=== PATIENT | female | born 1940 | race Asian ===

== ENCOUNTER 2023-04-16 07:41 | Inpatient (IN) | payer OTHER ==
[~2023-04-16] VITALS: Ht 147.3 cm; Wt 34.0 kg
[~2023-04-16 07:41] MED LIST: MECL-370 PO; PAM10 PO; PRED-285 PO; TEMA15CA11 PO; [UNRECOGNIZED DRUG - CODE] PO
[2023-04-16 07:47] VITALS: BP 103/72; PULSE 140; RESP 22; TEMP 97.6; O2SAT 94
[2023-04-16] MEDS: NACL 0.9% 1,000 ML IV ONE ×2 (08:06→10:10)
[2023-04-16 08:34] LABS: BASOPHILS % (AUTO) 0.3 % (0.0-2.0); EOSINOPHILS % (AUTO) 0.1 % (0.0-4.0); HEMATOCRIT 43.8 % (36-48); LYMPHOCYTES # (AUTO) 1.8 K/uL (2.5-16.5); LYMPHOCYTES % (AUTO) 18.9 % (20.5-51.1); MEAN CORPUSCULAR HEMOGLOBIN 36 pg (27-31); MEAN CORPUSCULAR HGB CONC 34 g/dL (33-37); MEAN CORPUSCULAR VOLUME 106.5 fL (80-94); MONOCYTES # (AUTO) 0.3 K/uL (0.8-1.0); MONOCYTES % (AUTO) 3.4 % (1.7-9.3); NEUTROPHILS # (AUTO) 7.2 K/uL (1.8-7.7); NEUTROPHILS % (AUTO) 77.3 % (42.2-75.2); PLATELET COUNT (AUTO) 122 K/uL (140-450); RED BLOOD CELL COUNT(AUTO) 4.11 MIL/uL (4.20-5.40); RED CELL DISTRIBUTION WIDTH 18.3 % (11.6-13.7); WHITE BLOOD COUNT (AUTO) 9.3 K/uL (4.8-10.8)
[2023-04-16] MEDS ORDERED: ADENOSINE 6 MG/2 ML VIAL IVP ONE ×3 (08:51→09:06)
[2023-04-16 08:54] LABS: INR 1.33 (0.8-1.2); PARTIAL THROMBOPLASTIN TIME 27.2 secs (22-35.6); PROTHROMBIN TIME 13.8 secs (10.8-13.4)
[2023-04-16] MEDS: ADENOSINE 6 MG/2 ML VIAL IVP ONE ×3 (09:00→10:00)
[2023-04-16 09:06] LABS: ANION GAP 18.6 (8-16); CALCIUM 9.8 mg/dL (8.5-10.1); CARBON DIOXIDE 17.9 mmol/L (21-32); CHLORIDE 108 mmol/L (98-107); CREATININE 2.3 mg/dL (0.6-1.3); GLUCOSE 112 mg/dL (74-106); POTASSIUM 5.5 mmol/L (3.5-5.1); SODIUM SERUM 139 mmol/L (136-145); UREA NITROGEN, BLOOD 52 mg/dL (7-18)
[2023-04-16] MEDS: MAG SULF 2000 MG/WATER PREMIX 50 ML IV ONE (09:10)
[2023-04-16 09:12] LABS: LACTIC ACID 5.7 mmol/L (0.4-2.0)
[2023-04-16 09:36] LABS: FLU A ANTIGEN negative (NEGATIVE); FLU B ANTIGEN negative (NEGATIVE)
[2023-04-16 09:36] LABS: ALANINE AMINOTRANSFERASE 9 U/L (12-78); ALBUMIN 2.3 g/dL (3.4-5.0); ALKALINE PHOSPHATASE 71 U/L (50-136); BILIRUBIN,DIRECT 0.4 mg/dL (0.0-0.3); CREATINE KINASE, TOTAL 28 U/L (26-192); MAGNESIUM 2.1 mg/dL (1.8-2.4); PHOSPHORUS 5.9 mg/dL (2.5-4.9); THYROID STIMULATING HORMONE 1.74 uIU/mL (0.34-3.74); TOTAL BILIRUBIN 1.2 mg/dL (0.0-1.0); TOTAL PROTEIN, SERUM 7.8 g/dL (6.4-8.2)
[2023-04-16 09:57] LABS: ASPARTATE AMINOTRANSFERASE 37 U/L (15-37)
[2023-04-16] MEDS: DILTIAZEM 25 MG/5 ML VIAL IVP ONE (10:38)
[2023-04-16] MEDS ORDERED: PIPERACILLIN/TAZOBACTAM 3.375 GM VIAL IV ONE (11:15)
[2023-04-16] MEDS: PIPERACILLIN/TAZOBACTAM 3.375 GM in DEXTROSE 5% 50 ML IV ONE (11:17)
[2023-04-16] MEDS: DILTIAZEM 125 MG in DEXTROSE 5% 100 ML IV ONE (11:20)
[2023-04-16 11:32] LABS: BILIRUBIN,URINE 2+ (NEGATIVE); BLOOD, URINE 3+ (NEGATIVE); LEUKOCYTE ESTERASE ,URINE 2+ (NEGATIVE); NITRITE, URINE POSITIVE (NEGATIVE); PROTEIN,URINE 1+ (NEGATIVE); UGLUCOSE TRACE (NEGATIVE)
[2023-04-16 11:46] LABS: APPEARANCE,URINE CLOUDY (CLEAR); COLOR,URINE AMBER (YELLOW)
[2023-04-16 11:50] LABS: RBC,URINE 20-50 /HPF (0-5); WBC,URINE 60-80 /HPF (0-5)
[2023-04-16] MEDS ORDERED: VANCOMYCIN 1,000 MG VIAL ONE (11:52)
[2023-04-16 11:53] LABS: SQUAMOUS EPITHELIAL CELL,UR 0-3 (FEW) /LPF (0-3 (FEW))
[2023-04-16 11:54] LABS: MUCUS,URINE 1+ /LPF (None Seen)
[2023-04-16 11:57] LABS: BACTERIA,URINE FEW /HPF (None Seen); ICTOTEST POSITIVE (NEGATIVE)
[2023-04-16] MEDS ORDERED: HYDROcodone/APAP 5/325 MG 1 TAB TAB PO PRN (12:25)
[2023-04-16] MEDS ORDERED: ZOLPIDEM 5 MG TAB PO PRN (12:25)
[2023-04-16] MEDS ORDERED: LORazepam 1 MG TAB PO PRN (12:25)
[2023-04-16] MEDS: VANCOMYCIN 1,000 MG in DEXTROSE 5% 250 ML IV ONE (12:30)
[2023-04-16] MEDS: NACL 0.9% 1,000 ML IV SCH (12:59)
[2023-04-16] MEDS: NACL 0.9% 500 ML IV SCH (15:12)
[2023-04-16 20:30] VITALS: BP 123/64; PULSE 91; RESP 16; TEMP 97.8; O2SAT 100
[2023-04-16 21:00] VITALS: PULSE 89; RESP 17; O2SAT 100
[2023-04-16 22:00] VITALS: BP 130/65; PULSE 94; RESP 16; O2SAT 100
[2023-04-16 23:00] VITALS: BP 123/64; PULSE 89; RESP 13; O2SAT 100
[2023-04-16 23:53] VITALS: BP 130/65; PULSE 91; RESP 16; TEMP 97.8; O2SAT 100
[2023-04-17] VITALS (15 sets, daily range): BP systolic 110–163; BP diastolic 48–82; PULSE 64–104; RESP 12–20; TEMP 97.2–98.5; O2SAT 98–100
[2023-04-17] MEDS ORDERED: PIPERACILLIN/TAZOBACTAM 3.375 GM in DEXTROSE 5% 50 ML IV SCH
[2023-04-17] MEDS: PIPERACILLIN/TAZOBACTAM 2.25 GM in DEXTROSE 5% 50 ML IV SCH (00:13)
[2023-04-17] MEDS: PIPERACILLIN/TAZOBACTAM 2.25 GM VIAL IV ONE (00:15)
[2023-04-17] MEDS ORDERED: PIPERACILLIN/TAZOBACTAM 2.25 GM VIAL IV ONE (05:37)
[2023-04-17 06:25] LABS: BASOPHILS % (AUTO) 0.1 % (0.0-2.0); HEMATOCRIT 32.3 % (36-48); LYMPHOCYTES # (AUTO) 1.3 K/uL (2.5-16.5); LYMPHOCYTES % (AUTO) 14.4 % (20.5-51.1); MEAN CORPUSCULAR HEMOGLOBIN 37 pg (27-31); MEAN CORPUSCULAR HGB CONC 34 g/dL (33-37); MEAN CORPUSCULAR VOLUME 107.3 fL (80-94); MONOCYTES # (AUTO) 0.1 K/uL (0.8-1.0); MONOCYTES % (AUTO) 1.1 % (1.7-9.3); NEUTROPHILS # (AUTO) 7.4 K/uL (1.8-7.7); NEUTROPHILS % (AUTO) 84.4 % (42.2-75.2); PLATELET COUNT (AUTO) 93 K/uL (140-450); RED BLOOD CELL COUNT(AUTO) 3.01 MIL/uL (4.20-5.40); RED CELL DISTRIBUTION WIDTH 18.6 % (11.6-13.7); WHITE BLOOD COUNT (AUTO) 8.8 K/uL (4.8-10.8)
[2023-04-17 06:48] LABS: ALANINE AMINOTRANSFERASE 6 U/L (12-78); ALBUMIN 1.8 g/dL (3.4-5.0); ALKALINE PHOSPHATASE 53 U/L (50-136); ANION GAP 14.6 (8-16); ASPARTATE AMINOTRANSFERASE 30 U/L (15-37); CALCIUM 8.7 mg/dL (8.5-10.1); CARBON DIOXIDE 17.4 mmol/L (21-32); CHLORIDE 114 mmol/L (98-107); GLUCOSE 73 mg/dL (74-106); SODIUM SERUM 142 mmol/L (136-145); TOTAL BILIRUBIN 0.9 mg/dL (0.0-1.0); TOTAL PROTEIN, SERUM 5.9 g/dL (6.4-8.2); UREA NITROGEN, BLOOD 35 mg/dL (7-18)
[2023-04-17] MEDS ORDERED: remdesivir COMMUNICATION ORDER 1 EA MISC MC PRN (09:00)
[2023-04-17] MEDS: DOCUSATE SODIUM 100 MG GELCAP PO SCH (09:00)
[2023-04-17] MEDS ORDERED: remdesivir CLINICAL MONITORING 1 EA MISC MC PRN (10:00)
[2023-04-17] MEDS: REMDESIVIR. 200 MG in NACL 0.9% 100 ML IV SCH (10:45)
[2023-04-17] MEDS ORDERED: remdesivir COMMUNICATION ORDER 1 EA MISC MC SCH (11:00)
[2023-04-17] MEDS ORDERED: HYDRAGUARD CREAM TP PRN (12:35)
[2023-04-17] MEDS ORDERED: SKINTEGRITY HYDROGEL TP PRN (12:35)
[2023-04-17] MEDS ORDERED: Z-GUARD PASTE TP PRN (12:35)
[2023-04-17] MEDS: HYDRAGUARD CREAM TP SCH (13:00)
[2023-04-17] MEDS: SKINTEGRITY HYDROGEL TP SCH (13:00)
[2023-04-17] MEDS: Z-GUARD PASTE TP SCH (13:00)
[2023-04-18] VITALS (8 sets, daily range): BP systolic 110–136; BP diastolic 56–97; PULSE 57–112; RESP 18–20; TEMP 96.7–98; O2SAT 98–100
[2023-04-18 06:46] LABS: BASOPHILS % (AUTO) 0.1 % (0.0-2.0); EOSINOPHILS % (AUTO) 0.4 % (0.0-4.0); HEMATOCRIT 34.4 % (36-48); HEMOGLOBIN 11.8 g/dL (12.0-16.0); LYMPHOCYTES # (AUTO) 1.1 K/uL (2.5-16.5); LYMPHOCYTES % (AUTO) 18.7 % (20.5-51.1); MEAN CORPUSCULAR HEMOGLOBIN 37 pg (27-31); MEAN CORPUSCULAR HGB CONC 34 g/dL (33-37); MEAN CORPUSCULAR VOLUME 106.9 fL (80-94); MONOCYTES # (AUTO) 0.1 K/uL (0.8-1.0); NEUTROPHILS # (AUTO) 4.5 K/uL (1.8-7.7); NEUTROPHILS % (AUTO) 79.8 % (42.2-75.2); PLATELET COUNT (AUTO) 61 K/uL (140-450); RED BLOOD CELL COUNT(AUTO) 3.22 MIL/uL (4.20-5.40); RED CELL DISTRIBUTION WIDTH 18.5 % (11.6-13.7); WHITE BLOOD COUNT (AUTO) 5.7 K/uL (4.8-10.8)
[2023-04-18 06:56] LABS: ALBUMIN 1.9 g/dL (3.4-5.0); BILIRUBIN,DIRECT 0.4 mg/dL (0.0-0.3); TOTAL PROTEIN, SERUM 6.2 g/dL (6.4-8.2)
[2023-04-18 07:13] LABS: ALANINE AMINOTRANSFERASE 14 U/L (12-78); ALKALINE PHOSPHATASE 60 U/L (50-136); ANION GAP 15.9 (8-16); ASPARTATE AMINOTRANSFERASE 45 U/L (15-37); CARBON DIOXIDE 17.9 mmol/L (21-32); CHLORIDE 115 mmol/L (98-107); CREATININE 0.9 mg/dL (0.6-1.3); GLUCOSE 82 mg/dL (74-106); POTASSIUM 3.8 mmol/L (3.5-5.1); SODIUM SERUM 145 mmol/L (136-145); TOTAL PROTEIN, SERUM 6.3 g/dL (6.4-8.2); UREA NITROGEN, BLOOD 29 mg/dL (7-18)
[2023-04-18] MEDS: REMDESIVIR. 100 MG in NACL 0.9% 100 ML IV SCH (11:36)
[2023-04-19] VITALS (9 sets, daily range): BP systolic 100–130; BP diastolic 60–83; PULSE 70–118; RESP 18–20; TEMP 97.6–98.3; O2SAT 94–99
[2023-04-19] MEDS: cefTRIAXone 1,000 MG VIAL ONE (06:00)
[2023-04-19 06:47] LABS: BASOPHILS % (AUTO) 0.2 % (0.0-2.0); EOSINOPHILS % (AUTO) 0.6 % (0.0-4.0); HEMOGLOBIN 11.5 g/dL (12.0-16.0); LYMPHOCYTES # (AUTO) 1.1 K/uL (2.5-16.5); LYMPHOCYTES % (AUTO) 44.5 % (20.5-51.1); MEAN CORPUSCULAR HEMOGLOBIN 37 pg (27-31); MEAN CORPUSCULAR HGB CONC 35 g/dL (33-37); MEAN CORPUSCULAR VOLUME 106.4 fL (80-94); MONOCYTES % (AUTO) 1.2 % (1.7-9.3); NEUTROPHILS # (AUTO) 1.4 K/uL (1.8-7.7); NEUTROPHILS % (AUTO) 53.5 % (42.2-75.2); PLATELET COUNT (AUTO) 28 K/uL (140-450); RED CELL DISTRIBUTION WIDTH 18.6 % (11.6-13.7); WHITE BLOOD COUNT (AUTO) 2.6 K/uL (4.8-10.8)
[2023-04-19 07:07] LABS: ALANINE AMINOTRANSFERASE 10 U/L (12-78); ALBUMIN 1.8 g/dL (3.4-5.0); ALKALINE PHOSPHATASE 59 U/L (50-136); ANION GAP 13.9 (8-16); ASPARTATE AMINOTRANSFERASE 33 U/L (15-37); CALCIUM 9.2 mg/dL (8.5-10.1); CARBON DIOXIDE 17.8 mmol/L (21-32); CHLORIDE 119 mmol/L (98-107); CREATININE 0.7 mg/dL (0.6-1.3); GLUCOSE 104 mg/dL (74-106); POTASSIUM 3.7 mmol/L (3.5-5.1); SODIUM SERUM 147 mmol/L (136-145); TOTAL BILIRUBIN 1.2 mg/dL (0.0-1.0); TOTAL PROTEIN, SERUM 5.9 g/dL (6.4-8.2); UREA NITROGEN, BLOOD 32 mg/dL (7-18)
[2023-04-19] MEDS: DEXTROSE 5% 1,000 ML IV SCH (09:50)
[2023-04-19] MEDS ORDERED: DEXTROSE 5% 1,000 ML IV SCH (12:05)
[2023-04-19] MEDS: MIRTAZAPINE 15 MG TAB PO SCH (22:40)
[2023-04-20] VITALS: BP 105/61; PULSE 100; RESP 18; TEMP 98; O2SAT 96
[2023-04-20 04:00] VITALS: BP 108/59; PULSE 100; PULSE 102; RESP 18; TEMP 98.1; O2SAT 97
[2023-04-20 07:12] LABS: BASOPHILS % (AUTO) 0.2 % (0.0-2.0); EOSINOPHILS # (AUTO) 0.1 K/uL (0-0.4); EOSINOPHILS % (AUTO) 1.8 % (0.0-4.0); HEMATOCRIT 30.6 % (36-48); HEMOGLOBIN 10.6 g/dL (12.0-16.0); LYMPHOCYTES # (AUTO) 1.5 K/uL (2.5-16.5); LYMPHOCYTES % (AUTO) 42.3 % (20.5-51.1); MEAN CORPUSCULAR HEMOGLOBIN 37 pg (27-31); MEAN CORPUSCULAR HGB CONC 35 g/dL (33-37); MEAN CORPUSCULAR VOLUME 106.1 fL (80-94); MONOCYTES % (AUTO) 0.5 % (1.7-9.3); NEUTROPHILS % (AUTO) 55.2 % (42.2-75.2); RED BLOOD CELL COUNT(AUTO) 2.89 MIL/uL (4.20-5.40); RED CELL DISTRIBUTION WIDTH 18.2 % (11.6-13.7); WHITE BLOOD COUNT (AUTO) 3.6 K/uL (4.8-10.8)
[2023-04-20 07:26] LABS: ALANINE AMINOTRANSFERASE 8 U/L (12-78); ALBUMIN 1.7 g/dL (3.4-5.0); ALKALINE PHOSPHATASE 57 U/L (50-136); ANION GAP 13.8 (8-16); ASPARTATE AMINOTRANSFERASE 31 U/L (15-37); CALCIUM 9.3 mg/dL (8.5-10.1); CARBON DIOXIDE 20.6 mmol/L (21-32); CHLORIDE 119 mmol/L (98-107); CREATININE 0.8 mg/dL (0.6-1.3); GLUCOSE 138 mg/dL (74-106); POTASSIUM 3.4 mmol/L (3.5-5.1); SODIUM SERUM 150 mmol/L (136-145); TOTAL PROTEIN, SERUM 5.8 g/dL (6.4-8.2); UREA NITROGEN, BLOOD 34 mg/dL (7-18)
[2023-04-20 07:33] LABS: PLATELET COUNT (AUTO) 16 K/uL (140-450)
[2023-04-20 08:00] VITALS: BP 126/76; PULSE 103; PULSE 109; RESP 16; TEMP 98; O2SAT 98
[2023-04-20] MEDS: DOCUSATE 100 MG/10 ML UDC PO SCH (09:18)
[2023-04-20 11:13] LABS: ANISOCYTOSIS 1+; BASOPHILS % (MANUAL) 0 % (0-2); BLASTS, MANUAL % 0 % (0-0); EOSINOPHILS % (MANUAL) 0 % (0-4); LYMPHOCYTES % (MANUAL) 43 % (20-46); METAMYELOCYTES % 0 % (0-0); MONOCYTES % (MANUAL) 0 % (5-12); MYELOCYTES % 0 % (0-0); OTHER CELLS,MANUAL % 0 (0-0); OVALOCYTES 1+; PLASMA CELLS 0; PLATELET ESTIMATE DECREASED; PROMYELOCYTES % 0 % (0-0); SMUDGE CELLS 0; TEAR DROP CELLS 1+
[2023-04-20 11:14] LABS: SCHISTOCYTES 1+
[2023-04-20 12:00] VITALS: BP 111/51; PULSE 105; PULSE 111; RESP 16; TEMP 96.6; O2SAT 98
[2023-04-20] MEDS: POTASSIUM CHLORIDE 20% 40 MEQ/15 ML UDC PO PRN (12:13)
[2023-04-20 16:00] VITALS: BP 115/76; PULSE 109; PULSE 110; RESP 16; TEMP 97.5; O2SAT 98
[2023-04-20 20:00] VITALS: BP 111/84; PULSE 107; RESP 18; TEMP 97.9; O2SAT 98; O2SAT 99
[2023-04-20] MEDS: DEXTROSE 5% 1,000 ML IV SCH (20:38)
[2023-04-21] VITALS (7 sets, daily range): BP systolic 103–140; BP diastolic 60–87; PULSE 91–121; RESP 16–18; TEMP 97.1–98.5; O2SAT 97–100
[2023-04-21 07:36] LABS: ALANINE AMINOTRANSFERASE 11 U/L (12-78); ALBUMIN 1.5 g/dL (3.4-5.0); ALKALINE PHOSPHATASE 52 U/L (50-136); ANION GAP 14.3 (8-16); ASPARTATE AMINOTRANSFERASE 37 U/L (15-37); CALCIUM 8.6 mg/dL (8.5-10.1); CARBON DIOXIDE 18.1 mmol/L (21-32); CHLORIDE 113 mmol/L (98-107); CREATININE 0.7 mg/dL (0.6-1.3); GLUCOSE 136 mg/dL (74-106); POTASSIUM 3.4 mmol/L (3.5-5.1); SODIUM SERUM 142 mmol/L (136-145); TOTAL BILIRUBIN 0.9 mg/dL (0.0-1.0); TOTAL PROTEIN, SERUM 5.2 g/dL (6.4-8.2); UREA NITROGEN, BLOOD 24 mg/dL (7-18)
[2023-04-21 08:38] LABS: BASOPHILS % (AUTO) 0.2 % (0.0-2.0); EOSINOPHILS # (AUTO) 0.1 K/uL (0-0.4); EOSINOPHILS % (AUTO) 5.6 % (0.0-4.0); HEMOGLOBIN 8.6 g/dL (12.0-16.0); MEAN CORPUSCULAR HEMOGLOBIN 37 pg (27-31); MEAN CORPUSCULAR HGB CONC 35 g/dL (33-37); MONOCYTES % (AUTO) 0.5 % (1.7-9.3); NEUTROPHILS # (AUTO) 0.8 K/uL (1.8-7.7); RED BLOOD CELL COUNT(AUTO) 2.36 MIL/uL (4.20-5.40); RED CELL DISTRIBUTION WIDTH 18.4 % (11.6-13.7)
[2023-04-21 08:41] LABS: LYMPHOCYTES % (AUTO) 51.5 % (20.5-51.1); NEUTROPHILS % (AUTO) 42.2 % (42.2-75.2); PLATELET COUNT (AUTO) 20 K/uL (140-450)
[2023-04-21] MEDS: POTASSIUM CHLORIDE 20 MEQ, LIDOCAINE 1% 25 MG in NACL 0.9% 250 ML IV SCH (11:31)
[2023-04-22] VITALS (7 sets, daily range): BP systolic 103–139; BP diastolic 58–82; PULSE 99–117; RESP 17–20; TEMP 96.9–98.7; O2SAT 97–100
[2023-04-22] MEDS: ONDANSETRON 4 MG/2 ML VIAL IVP PRN (05:37)
[2023-04-22 06:15] LABS: ALANINE AMINOTRANSFERASE 11 U/L (12-78); ALBUMIN 1.6 g/dL (3.4-5.0); ALKALINE PHOSPHATASE 62 U/L (50-136); ANION GAP 11.6 (8-16); ASPARTATE AMINOTRANSFERASE 32 U/L (15-37); CALCIUM 8.6 mg/dL (8.5-10.1); CARBON DIOXIDE 22.5 mmol/L (21-32); CHLORIDE 110 mmol/L (98-107); CREATININE 0.6 mg/dL (0.6-1.3); GLUCOSE 114 mg/dL (74-106); POTASSIUM 3.1 mmol/L (3.5-5.1); SODIUM SERUM 141 mmol/L (136-145); TOTAL BILIRUBIN 1.3 mg/dL (0.0-1.0); TOTAL PROTEIN, SERUM 5.2 g/dL (6.4-8.2); UREA NITROGEN, BLOOD 18 mg/dL (7-18)
[2023-04-22 06:59] LABS: HEMOGLOBIN 7.6 g/dL (12.0-16.0); MEAN CORPUSCULAR HEMOGLOBIN 37 pg (27-31); MEAN CORPUSCULAR HGB CONC 34 g/dL (33-37); MEAN CORPUSCULAR VOLUME 106.3 fL (80-94); PLATELET COUNT (AUTO) 59 K/uL (140-450); RED BLOOD CELL COUNT(AUTO) 2.07 MIL/uL (4.20-5.40); RED CELL DISTRIBUTION WIDTH 17.6 % (11.6-13.7)
[2023-04-22 08:41] LABS: WHITE BLOOD COUNT (AUTO) 1.1 K/uL (4.8-10.8)
[2023-04-22 08:42] LABS: LYMPHOCYTES % (MANUAL) 75 % (20-46)
[2023-04-22 08:43] LABS: EOSINOPHILS % (MANUAL) 3 % (0-4); MONOCYTES % (MANUAL) 1 % (5-12)
[2023-04-22 11:21] LABS: INR 1.36 (0.8-1.2); PROTHROMBIN TIME 14.1 secs (10.8-13.4)
[2023-04-22] MEDS: METOPROLOL 25 MG TAB PO SCH (21:00)
[2023-04-23] VITALS: BP 103/56; PULSE 102; PULSE 109; RESP 18; TEMP 98.7; O2SAT 99
[2023-04-23 04:00] VITALS: BP 124/74; PULSE 108; RESP 19; TEMP 97.2; O2SAT 99
[2023-04-23 07:06] LABS: ALANINE AMINOTRANSFERASE 11 U/L (12-78); ALBUMIN 1.5 g/dL (3.4-5.0); ALKALINE PHOSPHATASE 56 U/L (50-136); ANION GAP 10.2 (8-16); ASPARTATE AMINOTRANSFERASE 26 U/L (15-37); CALCIUM 8.5 mg/dL (8.5-10.1); CARBON DIOXIDE 23.3 mmol/L (21-32); CHLORIDE 107 mmol/L (98-107); CREATININE 0.5 mg/dL (0.6-1.3); GLUCOSE 82 mg/dL (74-106); SODIUM SERUM 138 mmol/L (136-145); TOTAL BILIRUBIN 1.6 mg/dL (0.0-1.0); TOTAL PROTEIN, SERUM 5.3 g/dL (6.4-8.2); UREA NITROGEN, BLOOD 8 mg/dL (7-18)
[2023-04-23 07:42] LABS: BASOPHILS % (AUTO) 0.1 % (0.0-2.0); EOSINOPHILS % (AUTO) 5.2 % (0.0-4.0); LYMPHOCYTES # (AUTO) 0.7 K/uL (2.5-16.5); LYMPHOCYTES % (AUTO) 87.1 % (20.5-51.1); MEAN CORPUSCULAR HEMOGLOBIN 37 pg (27-31); MEAN CORPUSCULAR HGB CONC 36 g/dL (33-37); MEAN CORPUSCULAR VOLUME 104.4 fL (80-94); MONOCYTES % (AUTO) 0.4 % (1.7-9.3); NEUTROPHILS # (AUTO) 0.1 K/uL (1.8-7.7); NEUTROPHILS % (AUTO) 7.2 % (42.2-75.2); RED BLOOD CELL COUNT(AUTO) 1.68 MIL/uL (4.20-5.40); RED CELL DISTRIBUTION WIDTH 16.8 % (11.6-13.7)
[2023-04-23 07:55] LABS: HEMOGLOBIN 6.2 g/dL (12.0-16.0); POTASSIUM 2.5 mmol/L (3.5-5.1); WHITE BLOOD COUNT (AUTO) 0.8 K/uL (4.8-10.8)
[2023-04-23 07:56] LABS: HEMATOCRIT 17.5 % (36-48); PLATELET COUNT (AUTO) 29 K/uL (140-450)
[2023-04-23 08:00] VITALS: BP 105/64; PULSE 116; RESP 17; TEMP 98.9; O2SAT 100
[2023-04-23 12:00] VITALS: BP 110/74; PULSE 108; PULSE 113; RESP 20; TEMP 97.8; O2SAT 99
[2023-04-23 15:07] LABS: HEPATITIS A ANTIBODY IGM Negative (Negative); HEPATITIS B CORE, IGM Negative (Negative); HEPATITIS B SURFACE ANTIBODY Reactive (.); HEPATITIS B SURFACE ANTIGEN Negative (Negative); HEPATITIS C AB Non Reactive (Non Reactive); HEPATITIS C VIRUS ANTIBODY Non Reactive (Non Reactive); HIV 1/0/2 ABS, QUAL Non Reactive (Non Reactive)
[2023-04-23 16:00] VITALS: BP 106/56; PULSE 103; PULSE 109; RESP 18; TEMP 98.9; O2SAT 100
[2023-04-23 20:00] VITALS: BP 128/80; PULSE 110; PULSE 114; RESP 18; TEMP 97; O2SAT 99
[2023-04-23 21:23] LABS: EOSINOPHILS % (AUTO) 2.1 % (0.0-4.0); HEMATOCRIT 26.2 % (36-48); HEMOGLOBIN 9.4 g/dL (12.0-16.0); LYMPHOCYTES # (AUTO) 0.5 K/uL (2.5-16.5); MEAN CORPUSCULAR HEMOGLOBIN 36 pg (27-31); MEAN CORPUSCULAR HGB CONC 36 g/dL (33-37); MEAN CORPUSCULAR VOLUME 100.8 fL (80-94); NEUTROPHILS % (AUTO) 5.9 % (42.2-75.2); RED CELL DISTRIBUTION WIDTH 15.3 % (11.6-13.7)
[2023-04-23 21:25] LABS: WHITE BLOOD COUNT (AUTO) 0.5 K/uL (4.8-10.8)
[2023-04-23 21:26] LABS: PLATELET COUNT (AUTO) 17 K/uL (140-450)
[2023-04-24] VITALS (9 sets, daily range): BP systolic 111–143; BP diastolic 61–92; PULSE 72–113; RESP 18; TEMP 97–98.2; O2SAT 96–100
[2023-04-24 07:10] LABS: BASOPHILS % (AUTO) 0.1 % (0.0-2.0); EOSINOPHILS % (AUTO) 3.9 % (0.0-4.0); HEMATOCRIT 23.5 % (36-48); HEMOGLOBIN 8.4 g/dL (12.0-16.0); LYMPHOCYTES # (AUTO) 0.4 K/uL (2.5-16.5); LYMPHOCYTES % (AUTO) 88.7 % (20.5-51.1); MEAN CORPUSCULAR HEMOGLOBIN 36 pg (27-31); MEAN CORPUSCULAR HGB CONC 36 g/dL (33-37); MEAN CORPUSCULAR VOLUME 100.5 fL (80-94); MONOCYTES % (AUTO) 4.2 % (1.7-9.3); NEUTROPHILS % (AUTO) 3.1 % (42.2-75.2); RED BLOOD CELL COUNT(AUTO) 2.33 MIL/uL (4.20-5.40)
[2023-04-24 07:21] LABS: ALANINE AMINOTRANSFERASE 13 U/L (12-78); ALBUMIN 1.4 g/dL (3.4-5.0); ALKALINE PHOSPHATASE 50 U/L (50-136); ANION GAP 11.7 (8-16); ASPARTATE AMINOTRANSFERASE 28 U/L (15-37); CALCIUM 8.8 mg/dL (8.5-10.1); CARBON DIOXIDE 22.4 mmol/L (21-32); CHLORIDE 110 mmol/L (98-107); CREATININE 0.5 mg/dL (0.6-1.3); GLUCOSE 72 mg/dL (74-106); SODIUM SERUM 142 mmol/L (136-145); TOTAL BILIRUBIN 2.1 mg/dL (0.0-1.0); TOTAL PROTEIN, SERUM 5.5 g/dL (6.4-8.2); UREA NITROGEN, BLOOD 14 mg/dL (7-18)
[2023-04-24 07:45] LABS: PLATELET COUNT (AUTO) 14 K/uL (140-450); WHITE BLOOD COUNT (AUTO) 0.5 K/uL (4.8-10.8)
[2023-04-24 08:01] LABS: POTASSIUM 2.1 mmol/L (3.5-5.1)
[2023-04-24] MEDS: FILGRASTIM-TBO 300 MCG/0.5 ML SYRINGE SUBQ SCH (08:22)
[2023-04-24] MEDS: POTASSIUM CHLORIDE 40 MEQ, LIDOCAINE 1% 25 MG in NACL 0.9% 250 ML IV SCH (09:43)
[2023-04-24] MEDS: POTASSIUM CHLORIDE 20 MEQ, LIDOCAINE 1% 25 MG in NACL 0.9% 250 ML IV SCH (14:00)
[2023-04-24] MEDS: DEXT 5% / NACL 0.45% 1,000 ML IV SCH (15:23)
[2023-04-24] MEDS ORDERED: THERAHONEY GEL 42.5 GM TP PRN (15:30)
[2023-04-24] MEDS ORDERED: NON ADHERENT DRESSING TP PRN (15:40)
[2023-04-24] MEDS: POTASSIUM CHLORIDE 20% 40 MEQ/15 ML UDC GT ONE (21:44)
[2023-04-25] VITALS (8 sets, daily range): BP systolic 98–165; BP diastolic 59–97; PULSE 95–117; RESP 18–20; TEMP 97.7–98.7; O2SAT 95–97
[2023-04-25 07:17] LABS: ANION GAP 13.2 (8-16); CALCIUM 9.5 mg/dL (8.5-10.1); CARBON DIOXIDE 22.3 mmol/L (21-32); CHLORIDE 115 mmol/L (98-107); CREATININE 0.5 mg/dL (0.6-1.3); GLUCOSE 130 mg/dL (74-106); POTASSIUM 4.5 mmol/L (3.5-5.1); SODIUM SERUM 146 mmol/L (136-145); UREA NITROGEN, BLOOD 17 mg/dL (7-18)
[2023-04-25 09:43] LABS: HEPATITIS A ANTIBODY TOTAL Positive (Negative); HEPATITIS B CORE AB TOTAL POSITIVE (NEGATIVE)
[2023-04-25 12:38] LABS: HEMATOCRIT 26.9 % (36-48); HEMOGLOBIN 9.5 g/dL (12.0-16.0); MEAN CORPUSCULAR HEMOGLOBIN 36 pg (27-31); MEAN CORPUSCULAR HGB CONC 35 g/dL (33-37); MEAN CORPUSCULAR VOLUME 102.8 fL (80-94); RED BLOOD CELL COUNT(AUTO) 2.61 MIL/uL (4.20-5.40); RED CELL DISTRIBUTION WIDTH 15.7 % (11.6-13.7)
[2023-04-25] MEDS: MAG SULF 2000 MG/WATER PREMIX 50 ML IV SCH (13:13)
[2023-04-25] MEDS: THERAHONEY GEL 42.5 GM TP SCH (13:19)
[2023-04-25] MEDS: NON ADHERENT DRESSING TP SCH (13:21)
[2023-04-25 13:26] LABS: PLATELET COUNT (AUTO) 13 K/uL (140-450); WHITE BLOOD COUNT (AUTO) 0.8 K/uL (4.8-10.8)
[2023-04-25 13:40] LABS: BASOPHILS % (MANUAL) 0 % (0-2); BLASTS, MANUAL % 0 % (0-0); EOSINOPHILS % (MANUAL) 0 % (0-4); LYMPHOCYTES % (MANUAL) 82 % (20-46); METAMYELOCYTES % 0 % (0-0); MONOCYTES % (MANUAL) 8 % (5-12); MYELOCYTES % 0 % (0-0); OTHER CELLS,MANUAL % 0 (0-0); PLATELET ESTIMATE DECREASED; PROMYELOCYTES % 0 % (0-0)
[2023-04-26] VITALS: BP 99/56; PULSE 113; PULSE 115; RESP 18; TEMP 98.3; O2SAT 96
[2023-04-26 04:00] VITALS: BP 104/49; PULSE 115; PULSE 117; RESP 18; TEMP 97.6; O2SAT 97
[2023-04-26 07:29] LABS: BASOPHILS % (AUTO) 0.2 % (0.0-2.0); EOSINOPHILS % (AUTO) 3.2 % (0.0-4.0); HEMATOCRIT 22.4 % (36-48); MEAN CORPUSCULAR HEMOGLOBIN 36 pg (27-31); MEAN CORPUSCULAR HGB CONC 36 g/dL (33-37); MONOCYTES # (AUTO) 0.3 K/uL (0.8-1.0); MONOCYTES % (AUTO) 17.2 % (1.7-9.3); NEUTROPHILS # (AUTO) 0.2 K/uL (1.8-7.7); NEUTROPHILS % (AUTO) 16.4 % (42.2-75.2); RED BLOOD CELL COUNT(AUTO) 2.22 MIL/uL (4.20-5.40)
[2023-04-26 07:37] LABS: ALANINE AMINOTRANSFERASE 16 U/L (12-78); ALBUMIN 1.3 g/dL (3.4-5.0); ALKALINE PHOSPHATASE 51 U/L (50-136); ANION GAP 10.9 (8-16); ASPARTATE AMINOTRANSFERASE 26 U/L (15-37); CALCIUM 9.1 mg/dL (8.5-10.1); CARBON DIOXIDE 23.2 mmol/L (21-32); CHLORIDE 117 mmol/L (98-107); CREATININE 0.6 mg/dL (0.6-1.3); GLUCOSE 161 mg/dL (74-106); POTASSIUM 3.1 mmol/L (3.5-5.1); SODIUM SERUM 148 mmol/L (136-145); TOTAL BILIRUBIN 0.7 mg/dL (0.0-1.0); TOTAL PROTEIN, SERUM 5.6 g/dL (6.4-8.2); UREA NITROGEN, BLOOD 20 mg/dL (7-18)
[2023-04-26 07:43] LABS: PLATELET COUNT (AUTO) 4 K/uL (140-450); WHITE BLOOD COUNT (AUTO) 1.5 K/uL (4.8-10.8)
[2023-04-26 08:00] VITALS: BP 149/60; PULSE 110; PULSE 113; RESP 18; TEMP 98.1; O2SAT 96
[2023-04-26 12:00] VITALS: BP 115/65; PULSE 123; RESP 18; TEMP 97.1; O2SAT 90
[2023-04-26 16:00] VITALS: BP 106/70; PULSE 101; RESP 18; TEMP 98.1; O2SAT 89
[2023-04-26] MEDS: POTASSIUM CHLORIDE 20% 40 MEQ/15 ML UDC GT SCH (16:17)
[2023-04-26 20:00] VITALS: BP 101/50; PULSE 118; PULSE 132; RESP 40; TEMP 96.3; O2SAT 86; O2SAT 88
[2023-04-27] VITALS (9 sets, daily range): BP systolic 99–147; BP diastolic 59–74; PULSE 55–115; RESP 18–22; TEMP 96–98.8; O2SAT 94–100
[2023-04-27 07:52] LABS: BASOPHILS % (AUTO) 0.2 % (0.0-2.0); EOSINOPHILS % (AUTO) 0.5 % (0.0-4.0); HEMATOCRIT 22.4 % (36-48); HEMOGLOBIN 7.9 g/dL (12.0-16.0); LYMPHOCYTES # (AUTO) 1.5 K/uL (2.5-16.5); LYMPHOCYTES % (AUTO) 34.1 % (20.5-51.1); MEAN CORPUSCULAR HEMOGLOBIN 36 pg (27-31); MEAN CORPUSCULAR HGB CONC 35 g/dL (33-37); MEAN CORPUSCULAR VOLUME 101.9 fL (80-94); MONOCYTES # (AUTO) 0.2 K/uL (0.8-1.0); MONOCYTES % (AUTO) 4.4 % (1.7-9.3); NEUTROPHILS # (AUTO) 2.7 K/uL (1.8-7.7); NEUTROPHILS % (AUTO) 60.8 % (42.2-75.2); PLATELET COUNT (AUTO) 64 K/uL (140-450); RED CELL DISTRIBUTION WIDTH 15.2 % (11.6-13.7); WHITE BLOOD COUNT (AUTO) 4.4 K/uL (4.8-10.8)
[2023-04-27] MEDS ORDERED: PHARMACY TO DOSE MC PRN (08:05)
[2023-04-27] MEDS ORDERED: VANCOMYCIN PER PHARMACY MC PRN (08:05)
[2023-04-27 09:49] LABS: BLOOD GAS PCO2 26.3 mmHg (35-45); BLOOD GAS PH 7.575 (7.35-7.45)
[2023-04-27 09:50] LABS: BLOOD GAS BASE EXCESS 2.1 mmol/L (-2.0-2.0); BLOOD GAS HCO3 23.8 mmol/L (22-26); BLOOD GAS O2 SAT% 94.2 % (92.0-98.5); BLOOD GAS PO2 61.7 mmHg (75-100)
[2023-04-27] MEDS: MEROPENEM 1,000 MG in NACL 0.9% 50 ML IV SCH (10:57)
[2023-04-27] MEDS: VANCOMYCIN 500 MG in DEXTROSE 5% 100 ML IV SCH (11:59)
[2023-04-27 12:05] LABS: ALANINE AMINOTRANSFERASE 14 U/L (12-78); ALBUMIN 1.4 g/dL (3.4-5.0); ALKALINE PHOSPHATASE 49 U/L (50-136); ANION GAP 12.6 (8-16); ASPARTATE AMINOTRANSFERASE 26 U/L (15-37); CARBON DIOXIDE 25.7 mmol/L (21-32); CHLORIDE 117 mmol/L (98-107); CREATININE 0.8 mg/dL (0.6-1.3); GLUCOSE 88 mg/dL (74-106); POTASSIUM 4.3 mmol/L (3.5-5.1); SODIUM SERUM 151 mmol/L (136-145); TOTAL BILIRUBIN 1.6 mg/dL (0.0-1.0); TOTAL PROTEIN, SERUM 6.1 g/dL (6.4-8.2); UREA NITROGEN, BLOOD 28 mg/dL (7-18)
[2023-04-27] MEDS: DEXTROSE 5% 1,000 ML IV SCH (15:23)
[2023-04-28] VITALS (14 sets, daily range): BP systolic 102–152; BP diastolic 37–103; PULSE 81–114; RESP 18–35; TEMP 94–98.1; O2SAT 89–98
[2023-04-28 07:39] LABS: HEMATOCRIT 23.8 % (36-48); HEMOGLOBIN 8.4 g/dL (12.0-16.0); MEAN CORPUSCULAR HEMOGLOBIN 37 pg (27-31); MEAN CORPUSCULAR HGB CONC 35 g/dL (33-37); MEAN CORPUSCULAR VOLUME 103.4 fL (80-94); PLATELET COUNT (AUTO) 76 K/uL (140-450); RED CELL DISTRIBUTION WIDTH 15.1 % (11.6-13.7); WHITE BLOOD COUNT (AUTO) 19.8 K/uL (4.8-10.8)
[2023-04-28 08:08] LABS: LYMPHOCYTES % (MANUAL) 16 % (20-46); MONOCYTES % (MANUAL) 5 % (5-12)
[2023-04-28 08:16] LABS: ALANINE AMINOTRANSFERASE 20 U/L (12-78); ALBUMIN 1.4 g/dL (3.4-5.0); ALKALINE PHOSPHATASE 75 U/L (50-136); ANION GAP 12.5 (8-16); ASPARTATE AMINOTRANSFERASE 41 U/L (15-37); CALCIUM 10.8 mg/dL (8.5-10.1); CARBON DIOXIDE 25.8 mmol/L (21-32); CHLORIDE 112 mmol/L (98-107); CREATININE 0.8 mg/dL (0.6-1.3); GLUCOSE 173 mg/dL (74-106); POTASSIUM 4.3 mmol/L (3.5-5.1); SODIUM SERUM 146 mmol/L (136-145); TOTAL BILIRUBIN 2.6 mg/dL (0.0-1.0); TOTAL PROTEIN, SERUM 6.3 g/dL (6.4-8.2); UREA NITROGEN, BLOOD 28 mg/dL (7-18)
[2023-04-28] MEDS: VANCOMYCIN 500 MG in DEXTROSE 5% 100 ML IV SCH (12:41)
[2023-04-28 12:48] LABS: BLOOD GAS PCO2 21.6 mmHg (35-45); BLOOD GAS PH 7.535 (7.35-7.45)
[2023-04-28 12:49] LABS: BLOOD GAS BASE EXCESS -3.6 mmol/L (-2.0-2.0); BLOOD GAS HCO3 17.8 mmol/L (22-26); BLOOD GAS PO2 44.4 mmHg (75-100)
[2023-04-28 12:50] LABS: BLOOD GAS O2 SAT% 83.6 % (92.0-98.5)
[2023-04-28 22:07] LABS: HEMATOCRIT 23.9 % (36-48); MEAN CORPUSCULAR HEMOGLOBIN 36 pg (27-31); MEAN CORPUSCULAR HGB CONC 33 g/dL (33-37); MEAN CORPUSCULAR VOLUME 107.6 fL (80-94); PLATELET COUNT (AUTO) 77 K/uL (140-450); RED BLOOD CELL COUNT(AUTO) 2.22 MIL/uL (4.20-5.40); RED CELL DISTRIBUTION WIDTH 15.9 % (11.6-13.7)
[2023-04-28] MEDS ORDERED: HEPARIN PER PHARMACY MC PRN (22:25)
[2023-04-28 22:26] LABS: WHITE BLOOD COUNT (AUTO) 45.6 K/uL (4.8-10.8)
[2023-04-28 22:34] LABS: HYPOCHROMASIA 2+; LYMPHOCYTES % (MANUAL) 6 % (20-46); MYELOCYTES % 2 % (0-0); PLATELET ESTIMATE DECREASED; PROMYELOCYTES % 6 % (0-0)
[2023-04-28 23:37] LABS: INR 1.16 (0.8-1.2); PARTIAL THROMBOPLASTIN TIME 27.3 secs (22-35.6); PROTHROMBIN TIME 12.1 secs (10.8-13.4)
[2023-04-29] VITALS (17 sets, daily range): BP systolic 101–136; BP diastolic 73–101; PULSE 67–133; RESP 20–30; TEMP 95.6–97.7; O2SAT 93–98
[2023-04-29] MEDS: hePARIN / DEXT 5% PREMIX 250 ML IV PRN (00:43)
[2023-04-29 03:54] LABS: BASOPHILS # (AUTO) 0.1 K/uL (0.00-0.22); BASOPHILS % (AUTO) 0.3 % (0.0-2.0); EOSINOPHILS # (AUTO) 0.1 K/uL (0-0.4); EOSINOPHILS % (AUTO) 0.1 % (0.0-4.0); HEMATOCRIT 20.5 % (36-48); HEMOGLOBIN 7.2 g/dL (12.0-16.0); LYMPHOCYTES # (AUTO) 2.5 K/uL (2.5-16.5); LYMPHOCYTES % (AUTO) 4.9 % (20.5-51.1); MEAN CORPUSCULAR HEMOGLOBIN 37 pg (27-31); MEAN CORPUSCULAR HGB CONC 35 g/dL (33-37); MEAN CORPUSCULAR VOLUME 107.1 fL (80-94); MONOCYTES # (AUTO) 1.1 K/uL (0.8-1.0); MONOCYTES % (AUTO) 2.1 % (1.7-9.3); NEUTROPHILS % (AUTO) 92.6 % (42.2-75.2); PLATELET COUNT (AUTO) 87 K/uL (140-450); RED BLOOD CELL COUNT(AUTO) 1.92 MIL/uL (4.20-5.40); RED CELL DISTRIBUTION WIDTH 15.7 % (11.6-13.7)
[2023-04-29 03:56] LABS: WHITE BLOOD COUNT (AUTO) 51.9 K/uL (4.8-10.8)
[2023-04-29 04:12] LABS: ALANINE AMINOTRANSFERASE 21 U/L (12-78); ALBUMIN 1.4 g/dL (3.4-5.0); ALKALINE PHOSPHATASE 135 U/L (50-136); ANION GAP 17.8 (8-16); ASPARTATE AMINOTRANSFERASE 48 U/L (15-37); CALCIUM 10.9 mg/dL (8.5-10.1); CARBON DIOXIDE 20.6 mmol/L (21-32); CHLORIDE 110 mmol/L (98-107); CREATININE 1.1 mg/dL (0.6-1.3); GLUCOSE 138 mg/dL (74-106); POTASSIUM 4.4 mmol/L (3.5-5.1); SODIUM SERUM 144 mmol/L (136-145); TOTAL BILIRUBIN 3.2 mg/dL (0.0-1.0); TOTAL PROTEIN, SERUM 6.7 g/dL (6.4-8.2); UREA NITROGEN, BLOOD 45 mg/dL (7-18)
[2023-04-29 04:19] LABS: APPEARANCE,URINE CLEAR (CLEAR); BILIRUBIN,URINE NEGATIVE (NEGATIVE); BLOOD, URINE 2+ (NEGATIVE); COLOR,URINE YELLOW (YELLOW); LEUKOCYTE ESTERASE ,URINE TRACE (NEGATIVE); NITRITE, URINE NEGATIVE (NEGATIVE); PROTEIN,URINE TRACE (NEGATIVE); UGLUCOSE NEGATIVE (NEGATIVE); UROBILINOGEN,URINE 0.2 EU/dL (0.2 - 1)
[2023-04-29 04:25] LABS: BACTERIA,URINE >30 (MANY) /HPF (None Seen); MUCUS,URINE 1+ /LPF (None Seen); SQUAMOUS EPITHELIAL CELL,UR 0-3 (FEW) /LPF (0-3 (FEW))
[2023-04-29 05:36] LABS: BLOOD GAS BASE EXCESS 1.5 mmol/L (-2.0-2.0); BLOOD GAS HCO3 20.8 mmol/L (22-26); BLOOD GAS PCO2 25.8 mmHg (35-45); BLOOD GAS PH 7.524 (7.35-7.45); BLOOD GAS PO2 64.4 mmHg (75-100)
[2023-04-29 05:37] LABS: BLOOD GAS O2 SAT% 93.5 % (92.0-98.5)
[2023-04-29] MEDS ORDERED: DOCUSATE SODIUM 100 MG GELCAP PO PRN (06:50)
[2023-04-29] MEDS ORDERED: HYOSCYAMINE 0.125 MG TAB SL PRN (06:50)
[2023-04-29] MEDS ORDERED: LORazepam 2 MG/ML VIAL IVP PRN ×2 (06:50→17:05)
[2023-04-29] MEDS ORDERED: ACETAMINOPHEN 325 MG TAB PO PRN (06:50)
[2023-04-29] MEDS ORDERED: ONDANSETRON 4 MG/2 ML VIAL IVP PRN ×2 (06:50→17:05)
[2023-04-29] MEDS: MORPHINE SULFATE 4 MG/ML SYR IVP PRN (10:26)
[2023-04-29] MEDS ORDERED: MORPHINE SULFATE 4 MG/ML SYR IVP PRN (17:05)
[2023-04-29] MEDS ORDERED: SCOPOLAMINE 1.5 MG/72 HR PATCH TD PRN (17:05)
[2023-04-29] MEDS: MORPHINE SULFATE 100 MG in NACL 0.9% 90 ML IV PRN (17:38)
[2023-04-30] VITALS (12 sets, daily range): BP systolic 98–108; BP diastolic 52–72; PULSE 85–110; RESP 18–22; TEMP 97–98.7; O2SAT 92–97
[2023-05-01] VITALS (16 sets, daily range): BP systolic 70–102; BP diastolic 46–68; PULSE 34–117; RESP 13–20; TEMP 96–98.6; O2SAT 66–99
[2023-05-01] MEDS: MORPHINE SULFATE 100 MG in NACL 0.9% 90 ML IV PRN (09:13)
[2023-05-02] VITALS: BP 82/43; PULSE 101; PULSE 51; RESP 12; TEMP 96.9; O2SAT 96
[2023-05-02 04:00] VITALS: BP 78/41; PULSE 91; PULSE 92; RESP 12; TEMP 96.6; O2SAT 94
[2023-05-02 07:55] VITALS: PULSE 90
[2023-05-02 09:00] VITALS: O2SAT 95
[2023-05-02 09:37] VITALS: BP 77/30; PULSE 107; RESP 15; TEMP 96.6; TEMP 96.8; O2SAT 78
[2023-05-02 09:38] VITALS: PULSE 88; RESP 15; O2SAT 78
== END 2023-05-02 13:00 | DRG 871 ==
LOC: MED 07:41 → MTU 12:26 → MIC 19:34 → MTU 04-17 12:10
PROVIDERS: ADMIT Student in an Organized Health Care Education/Training Program; ATTEND Student in an Organized Health Care Education/Training Program
PROC: XW033E5 Introduction of Remdesivir Anti-infective into Peripheral Vein, Percutaneous Approach, New Technology Group 5 (ICD-10-PCS; 2023-04-18)
PROC: 30233R1 Transfusion of Nonautologous Platelets into Peripheral Vein, Percutaneous Approach (ICD-10-PCS; principal; 2023-04-22)
PROC: 30233N1 Transfusion of Nonautologous Red Blood Cells into Peripheral Vein, Percutaneous Approach (ICD-10-PCS; 2023-04-23)
PROC: 5A0935A Assistance with Respiratory Ventilation, Less than 24 Consecutive Hours, High Flow/Velocity Cannula (ICD-10-PCS; 2023-04-27)
PROC: 5A0945A Assistance with Respiratory Ventilation, 24-96 Consecutive Hours, High Flow/Velocity Cannula (ICD-10-PCS; 2023-04-28)
PROC: 5A0935A Assistance with Respiratory Ventilation, Less than 24 Consecutive Hours, High Flow/Velocity Cannula (ICD-10-PCS; 2023-04-29)
PROC: 5A0935A Assistance with Respiratory Ventilation, Less than 24 Consecutive Hours, High Flow/Velocity Cannula (ICD-10-PCS; 2023-04-30)
PROC: 5A0935A Assistance with Respiratory Ventilation, Less than 24 Consecutive Hours, High Flow/Velocity Cannula (ICD-10-PCS; 2023-05-01)
DX: A41.9 Sepsis, unspecified organism (principal); E43 Unspecified severe protein-calorie malnutrition; J96.00 Acute respiratory failure, unspecified whether with hypoxia or hypercapnia; U07.1 COVID-19; J69.0 Pneumonitis due to inhalation of food and vomit; I21.A1 Myocardial infarction type 2; N39.0 Urinary tract infection, site not specified; N17.9 Acute kidney failure, unspecified; D61.818 Other pancytopenia; Z68.1 Body mass index [BMI] 19.9 or less, adult; I82.621 Acute embolism and thrombosis of deep veins of right upper extremity; E87.0 Hyperosmolality and hypernatremia; Y95 Nosocomial condition; B96.4 Proteus (mirabilis) (morganii) as the cause of diseases classified elsewhere; D70.2 Other drug-induced agranulocytosis; I48.91 Unspecified atrial fibrillation; Z51.5 Encounter for palliative care; Z79.899 Other long term (current) drug therapy
CPT/HCPCS: 36415; 36600; 70450; 71045; 73100; 80048; 80053; 80076; 80202; 81001; 82272; 82550; 82607; 82803; 82948; 83036; 83605; 83735; 84100; 84443; 84484; 85025; 85045; 85610; 85730; 86702; 86704; 86706; 86708; 86709; 86803; 86804; 86886; 86900; 86901; 86920; 87040; 87081; 87086; 87340; 87522; 92526; 93005; 93970; 96365; 96366; 96375; 96376; 97112; 97163-GP; 99291; A6248; J0153; J0696; J1447; J1644; J2001; J2185; J2270; J2405; J2543; J3370; J3475; J3480; J3490; J7030; J7060; P9016; P9035; Q0092